=== PATIENT | female | born 1950 | race African-American/Black ===

== ENCOUNTER 2018-12-01 06:52 | Inpatient (IN) ==
[2018-12-01] MEDS ORDERED: Bisacodyl 10 MG Supp RECTAL PRN (07:03)
[2018-12-01] MEDS ORDERED: HYDROmorphone PF Inj 1 MG/ML Ampul IV.PUSH PRN (07:03)
[2018-12-01] MEDS ORDERED: Zolpidem Tartrate 5 MG Tablet PO PRN (07:03)
[2018-12-01] MEDS ORDERED: Sodium Chlor 0.9% Inj 73.07 ML, Ropivacaine 0.5% PF Inj 24.63 ML, Ketorolac Inj 30 MG, ... P-ARTICULR SCH ×5 (07:45)
[2018-12-01] MEDS ORDERED: Metoprolol Tartrate 25 MG Tablet PO ONE (07:45)
[2018-12-01] MEDS ORDERED: Sodium Chlor 0.9% Inj 500 ML IV.CONT ONE (07:45)
[2018-12-01] MEDS ORDERED: Chlorhexidine Gluconate 2% 1 Pack (2 Cloths) TOPICAL ONE (07:45)
[2018-12-01] MEDS ORDERED: TRANEXAMIC ACID IV.SIG SCH (08:00)
[2018-12-01] MEDS ORDERED: Vancomycin Inj 1,000 MG in Sodium Chlor 0.9% Inj 250 ML IV.SIG SCH (08:00)
[2018-12-01] MEDS ORDERED: Dexamethasone Inj 20 MG/5 ML Vial IV.PUSH ONE (08:00)
[2018-12-01] MEDS ORDERED: SODIUM CHLOR 0.9% IV.SIG SCH (08:00)
[2018-12-01] MEDS ORDERED: ceFAZolin 2 GM Premix Inj 2 GM/50 ML PIGGYBACK IV.SIG SCH (08:00)
[2018-12-01] MEDS ORDERED: Sodium Chlor 0.9% Inj 100 ML, Tranexamic Acid Inj 3,000 MG P-ARTICULR SCH ×2 (08:00)
[2018-12-01] MEDS ORDERED: Dexamethasone PF Inj 10 MG/ML Vial ONE (08:13)
[2018-12-01] MEDS ORDERED: Bupivacaine Liposomal PF 1.3% Inj 20 ML Vial ONE (08:56)
[2018-12-01] MEDS ORDERED: JANUMET PO SCH (09:00)
[2018-12-01] MEDS ORDERED: Glycopyrrolate Inj 1 MG/5 ML Syringe IV.PUSH ONE (09:54)
[2018-12-01] MEDS ORDERED: Lidocaine PF 1% Inj 5 ML Syringe OTHER ONE (09:54)
[2018-12-01] MEDS ORDERED: Neostigmine Inj 5 MG/5 ML Syringe IV.PUSH ONE (09:54)
--- NOTE | 2018-12-01 11:43 | P.OP ---
Procedure: PREOPERATIVE DIAGNOSIS: Right knee osteoarthritis. POSTOPERATIVE DIAGNOSIS: Right knee osteoarthritis. PROCEDURE PERFORMED: Right total knee arthroplasty. SURGEON: Dr. Alex Norton M.D. TELEHEALTH DIRECTOR: ACACIA Reese. ANESTHESIA: General with adductor canal femoral nerve block ESTIMATED BLOOD LOSS: 100 mL. COMPLICATIONS: None. IMPLANTS USED: Klarissa size 4 press-fit femur femur [] Temple size 3 press-fit tibia baseplate [] Size 11 polyethylene insert [] Size 32 press-fit patella [] Tourniquet time 27 minutes at 250 mmHg Justification: The patient presents to the undersigned at [facility] with chief complaints of severe right knee pain. The pain is severe progressive and interferes with activities of daily living. The patient has failed greater than 3 months of nonoperative conservative treatment to include nonsteroidal anti-inflammatory medications, analgesic medications, physical therapy, cortisone injection, home exercise program, activity modification, ambulatory assistive aids, and weight loss. X-rays of the right knee reveal severe end-stage osteoarthritis with joint space narrowing, subchondral sclerosis, subchondral cysts, osteophyte formation, deformity with subluxation. The patient was counseled as to the risks, benefits, alternatives to a total knee arthroplasty. The risks were discussed which include but are not limited to, anesthesia, bleeding, infection, damage to nerves and blood vessels, continued pain, stiffness, failure of implants, blood clots, pulmonary embolism , and even . The patient's pain is severe and favors benefits over risk. The patient does wish to proceed with surgery as outlined above. Procedure in detail: Written consent has been obtained from the patient. The patient was identified and taken to the operating room. The patient was placed supine on the operating room table. General anesthesia was administered to the patient as well as an adductor canal femoral nerve block. The patient was administered preoperative IV antibiotic. A well-padded tourniquet was placed in the right thigh. The right lower extremity was prepped and draped using isopropyl alcohol , Hibiclens solution, and ChloraPrep solution. After a timeout was performed an Esmarch bandage was used to exsanguinate the right lower extremity. The tourniquet was inflated to 250 mmHg. A longitudinal incision was made over the anterior aspect of the right knee. A medial parapatellar arthrotomy was performed. The patella was everted. A patellar resection guide was used to assist with patellar resection. The patella drill guide was then placed to allow for 3 drill holes within the patella. The patella trial fit well. Attention was then turned to the femur where a intramedullary guide wander was placed. The distal femoral guide was set to remove 10 mm of distal femur 5 degrees off the anatomic valgus axis alignment. An oscillating saw was used to perform the distal femoral cut. Attention was then turned to the tibia where extramedullary tibia guide was set to remove 4 mm off the lowest portion of the medial tibial plateau. The tibial guide was pinned in place and the tibial cut was performed. A 9 mm spacer block showed full extension. Attention was turned back to the femur with the AP sizing block used to assist with appropriate measurement and placement of the 3 degree external rotation AP cutting guide. The anterior, posterior and chamfer cuts were then performed. The medial and lateral meniscus remnants were removed as well as bone and soft tissue debris from the posterior portion of the knee. A tibia baseplate was then pinned in place and the tibia was drilled and punched. Trial components were evaluated and final components were press fit in place. With the final components implanted the knee could achieve full extension to 0 degrees and flexion to 140, with no evidence of tibial liftoff. The testing of varus valgus balance appeared appropriate and symmetric with good stability. The patella was noted to track centrally. The tourniquet was deflated Bovie cautery was then used for hemostasis. The knee was then thoroughly irrigated with sterile saline pulse lavage antibiotic impregnated solution. The arthrotomy incision was closed with #1 Vicryl suture. The subcutaneous layer closed with 2-0 Vicryl suture. The skin incision was then closed with Dermabond. Sterile dressings were applied. The patient tolerated the procedure well with no intraoperative complications noted. Alex Petty physician assistant center manager certified was present during the entire procedure to include patient positioning and the procedure itself. The medical necessity of a physician assistant center manager was indicated in this case due to the complexity of the procedure itself. He assisted with appropriate manipulation of the leg and also retraction of the muscle, tendon, bone and neurovascular structures. He assisted with preparation of bone and also implantation of the prosthetic replacement. There was a diagnostic tech within the room that was focused on handling of instruments but was not available to assist with the actual surgery itself. Surgeon: Alex Dominguez MD
[2018-12-01] MEDS ORDERED: Post-op Orders (for Pharmacy) OTHER STA (12:00)
[2018-12-01] MEDS ORDERED: *morphine SULFATE 10 MG/ML PERIprocedure ONLY ONE (12:32)
[2018-12-01] MEDS ORDERED: *Meperidine Inj 25 MG/ML Vial PERIprocedural Use ONLY ONE (12:44)
--- NOTE | 2018-12-01 12:47 | XR ---
EXAM DATE: 12/01/2018 12:44 PM EST AGE/SEX: 68 years / Female INDICATIONS: Post op right knee replacement. CLINICAL DATA: This is the patient's initial encounter. Patient reports that signs and symptoms have been present for 1 day and indicates a pain score of Nonresponsive. MEDICAL/SURGICAL HISTORY: . Hypertension. Diabetes. Total knee replacement, right. COMPARISON: TLI, XR KNEE COMPLETE, RIGHT, 07/07/2018. . FINDINGS: Status post knee prosthesis. There is good position and alignment of the knee prosthesis. Postsurgica l changes are noted. The bony structures are grossly intact. CONCLUSION: Good position and alignment of the knee prosthesis. Electronically signed by: Misha Hale MD Board Certified Radiologist 12/01/2018 12:46 PM EST
[2018-12-01] MEDS ORDERED: Morphine Inj 4 MG/ML Vial ONE (13:04)
[2018-12-01] MEDS ORDERED: fentaNYL Citrate Inj 100 MCG/2 ML Ampul ONE (13:05)
[2018-12-01] MEDS: amLODIPine 10 MG Tablet PO SCH (13:12)
[2018-12-01] MEDS: Triamterene/HCTZ 37.5 MG/25 MG Tablet PO SCH (13:12)
[2018-12-01] MEDS ORDERED: Dimethicone/Oxybenzone-Padimate Lip Balm 4.25 GM Tube TOPICAL ONE (14:48)
[2018-12-01] MEDS: ceFAZolin 2 GM Premix Inj 2 GM/50 ML PIGGYBACK IV.SIG SCH ×2 (15:47→22:29)
[2018-12-01] MEDS: Senna/Docusate Sodium 8.6/50 MG Tablet PO SCH (20:34)
[2018-12-02] MEDS: ceFAZolin 2 GM Premix Inj 2 GM/50 ML PIGGYBACK IV.SIG SCH (03:17)
[2018-12-02 06:36] LABS: Hematocrit 31.8 % (35.0-46.0); Hemoglobin 10.2 gm/dL (11.6-15.3)
[2018-12-02] MEDS: Senna/Docusate Sodium 8.6/50 MG Tablet PO SCH ×2 (08:54→20:01)
[2018-12-02] MEDS: amLODIPine 10 MG Tablet PO SCH (08:54)
[2018-12-02] MEDS: Pantoprazole Sodium 20 MG DR Tablet PO SCH (08:54)
--- NOTE | 2018-12-02 08:54 | P.PNOP ---
Subjective Interval history: pain controlled. Physical Exam Vital signs: Vital Signs 12/01/18 12:02 12/01/18 12:15 12/01/18 12:30 Temperature 97.4 F L Pulse Rate 50 L 68 60 Respiratory Rate 16 16 16 Blood Pressure 109/59 L 129/69 177/88 H Pulse Oximetry 93 L 95 95 12/01/18 12:45 12/01/18 13:00 12/01/18 14:00 Temperature Pulse Rate 64 68 66 Respiratory Rate 16 16 16 Blood Pressure 163/78 H 139/69 139/70 Pulse Oximetry 95 96 96 12/01/18 15:00 12/01/18 16:00 12/01/18 16:14 Temperature Pulse Rate 66 61 Respiratory Rate 16 16 Blood Pressure 112/55 L 113/55 L Pulse Oximetry 96 96 98 12/01/18 17:00 12/01/18 18:10 12/01/18 20:30 Temperature 97.8 F 97.8 F Pulse Rate 78 61 Respiratory Rate 16 16 Blood Pressure 122/64 122/64 Pulse Oximetry 96 97 97 12/01/18 21:40 12/01/18 22:18 12/02/18 01:00 Temperature 97.8 F 97.9 F Pulse Rate 70 65 Respiratory Rate 18 17 Blood Pressure 126/69 121/58 L Pulse Oximetry 97 97 95 12/02/18 04:45 Temperature 98.1 F Pulse Rate 63 Respiratory Rate 17 Blood Pressure 122/61 Pulse Oximetry 95 Intake & Output 12/01/18 12/02/18 12/02/18 18:59 06:59 18:59 Intake Total 1661.76 / 1661.76 1580 / 1580 Output Total 200 / 200 Balance 1461.76 / 1461.76 1580 / 1580 Weight 78.4 kg 78.4 kg Intake: IV 1461.76 / 1461.76 1100 / 1100 LR 1000 mL Inj 1,000 ML @ 80 1000 / 1000 1000 / 1000 mls/hr IV.CONT .[id number] SANDRA Rx# :[id number] Cyklokapron Inj 1,176 MG In NS 111.76 / 111.76 Inj 100 ML @ 200 mls/hr IV.SIG ONCE SANDRA Rx#:[id number] Vancomycin Inj 1,000 MG In NS 250 / 250 Inj 250 ML @ 250 mls/hr IV.SIG POT HOLDER BINDER SANDRA Rx#:[id number] Ancef 2 GM Premix Inj 2 gm In 100 / 100 100 / 100 50 ml @ 100 mls/hr IV.SIG Q6H SANDRA Rx#:[id number] Oral 480 / 480 Anesthesia Amount 200 / 200 Output: Estimated Blood Loss 200 / 200 Other: # Voids 2 Date of Last Bowel Movement 12/01/18 # Bowel Movements 0 Weight On Admission 78.4 kg Narrative: in bed, nad dressing c/d/i neg homans nvi Results - Labs CBC & Chem 7: 12/02/18 05:44 Laboratory Results - last 24 hr 12/01/18 12/02/18 08:25 05:44 Hgb 10.2 L Hct 31.8 L Blood Type A Positive Blood Type Recheck Not needed Antibody Screen Negative - Imaging Impressions Knee X-Ray 12/01/18 07:03 CONCLUSION: Good position and alignment of the knee prosthesis. Assessment and Plan - Ortho Post Op Day # 1 - Assessment and Plan s/p R TKA wbat maintain dressing asa 81 d/c planning to snf f/up dr. talbot 2 weeks
[2018-12-02] MEDS: Multivitamin/Minerals Therapeutic Tablet PO SCH ×2 (08:55→20:01)
[2018-12-02] MEDS: Triamterene/HCTZ 37.5 MG/25 MG Tablet PO SCH (09:37)
[2018-12-03 06:18] LABS: Hematocrit 32.1 % (35.0-46.0); Hemoglobin 10.6 gm/dL (11.6-15.3)
[2018-12-03] MEDS: Pantoprazole Sodium 20 MG DR Tablet PO SCH (09:54)
[2018-12-03] MEDS: Multivitamin/Minerals Therapeutic Tablet PO SCH (09:54)
[2018-12-03] MEDS: amLODIPine 10 MG Tablet PO SCH (09:54)
[2018-12-03] MEDS: Senna/Docusate Sodium 8.6/50 MG Tablet PO SCH (09:55)
[2018-12-03] MEDS: Triamterene/HCTZ 37.5 MG/25 MG Tablet PO SCH (10:00)
--- NOTE | 2018-12-03 13:13 | P.PNOP ---
Subjective Interval history: doing well. ready to go to snf. Physical Exam Vital signs: Vital Signs 12/02/18 16:00 12/02/18 17:02 12/02/18 19:52 Temperature 99.7 F H 98.6 F Pulse Rate 79 72 Respiratory Rate 22 18 20 Blood Pressure 160/72 H 162/72 H Pulse Oximetry 91 L 94 L 12/03/18 00:10 12/03/18 04:45 12/03/18 08:00 Temperature 98.9 F 99.6 F 98 F Pulse Rate 73 78 77 Respiratory Rate 18 18 20 Blood Pressure 175/69 H 150/69 H 146/65 H Pulse Oximetry 92 L 94 L 92 L 12/03/18 08:20 12/03/18 10:34 Temperature Pulse Rate Respiratory Rate 18 18 Blood Pressure Pulse Oximetry Intake & Output 12/02/18 12/03/18 12/03/18 18:59 06:59 18:59 Intake Total 420 / 420 Balance 420 / 420 Weight 83.8 kg Intake: Oral 420 / 420 Other: # Voids 3 4 Date of Last Bowel Movement 12/01/18 12/01/18 # Bowel Movements 0 Narrative: in chair, nad dressing c/d/i neg homans nvi Results - Labs CBC & Chem 7: 12/03/18 05:36 Laboratory Results - last 24 hr 12/03/18 05:36 Hgb 10.6 L Hct 32.1 L Assessment and Plan - Ortho Post Op Day # 1 - Assessment and Plan s/p R TKA wbat maintain dressing asa 81 d/c planning to snf - cleared when authorized by insurance f/up dr. talbot 2 weeks
--- NOTE | 2018-12-04 08:32 | MD ---
cc: Alex Dominguez MD DATE OF DISCHARGE: 12/03/2018 ADMITTING DIAGNOSIS: Severe degenerative osteoarthritis, right knee. DISCHARGE DIAGNOSIS: Severe degenerative osteoarthritis, right knee. HISTORY OF PRESENT ILLNESS: This patient is a 68-year-old female who has been a longstanding patient of Dr[facility]. Currently, she is being treated for severe and progressive right knee pain. The patient states the pain is a severe aching sensation with any type of weightbearing activity. She notes the pain is limiting her activities of daily living. She is worried she will fall. She had no alleviating factors at this point in time. She has tried medications, assistive devices, physical therapy, home exercise program, multiple corticosteroid injections without long-lasting relief of symptoms. She had x-ray evidence of severe degenerative changes of the right knee joint. While in the office, the patient was counseled on her diagnosis and treatment options. Risks, benefits, and indications were discussed. The patient did elect to proceed with surgical intervention to include a right total knee arthroplasty. Date of surgery was 12/01/2018, right total knee arthroplasty. Postop after surgery, the patient was admitted to [facility] where she received appropriate medical management, pain control, DVT prophylaxis as well as physical therapy. DISCHARGE: Once being discharged from the hospital, the patient is cleared to go to a correction facility as she does live alone. She is in stable condition. She may weight bear as tolerated. She is instructed on wound care management. She has been provided prescriptions for pain control and DVT prophylaxis. She has also been provided a followup appointment in approximately 2 weeks from the date of surgery. The patient has asked appropriate questions, which have been answered. The patient is cleared for discharge. Dictated by BRENDA Reese Alex Dominguez MD JWSen/cale , 01:15 PM , 01:20 PM
== END 2018-12-03 14:30 | DRG 470 ==
LOC: HSDI 06:52 → N06 18:27
PROVIDERS: ADMIT Orthopaedic Surgery Sports Medicine; ATTEND Orthopaedic Surgery Sports Medicine
CPT/HCPCS: 73560; 85014; 85018; 86850; 86900; 86901; 94150; 97110; 97116; 97150; 97162; 97167; C1776; C9290; J0171; J0690; J0735; J1100; J1170; J1580; J1885; J2175; J2250; J2270; J2405; J2704; J2710; J2795; J3010; J3370; J7050; J7120; L1830